=== PATIENT | female | born 1945 | race Caucasian/White ===

== ENCOUNTER → 2019-03-21 | Outpatient (REF) | payer OTHER | LOC: M SFHCLERA 12:49 | PROVIDERS: ATTEND Nurse Practitioner Family | DX: R41.0 Disorientation, unspecified (principal) | CPT/HCPCS: 81002; 87086; G0463 ==

== ENCOUNTER → 2019-06-12 | Outpatient (REF) | payer OTHER ==
[2019-06-12 19:32] LABS: HEMOGLOBIN A1c 6.2 %
[2019-06-12 19:38] LABS: BILIRUBIN,TOTAL 0.5 MG/DL (0.2-1.0); CALCIUM LEVEL 8.5 MG/DL (8.8-10.2); CREATININE FOR GFR 1.21 MG/DL (0.55-1.30); GLOMERULAR FILTRATION RATE 46.2 (>39); POTASSIUM SERUM 4.6 MEQ/L (3.5-5.1)
== END ==
LOC: M SFHCLERA 13:55
PROVIDERS: ATTEND Nurse Practitioner Family
DX: Z79.4 Long term (current) use of insulin (principal)